=== PATIENT | female | born 1980 | race Caucasian/White ===

== ENCOUNTER 2023-08-05 00:26 | Day surgery (SDC) | payer BC, SELFPAY ==
[2023-07-29 14:10] VITALS: BMI 31.6
--- NOTE | 2023-07-29 14:37 | PC.NURSE ---
Report to the Outpatient Waiting Room, entrance under the green pavilion located off [facility], at time _0600__ on date _08/05/23___. Planned Procedure Time: __0730__. Time changes happen often and if your time is changed the preop area will call you the afternoon before. - You and your visitor will be asked to self-screen and do not enter if you have any COVID symptoms. - A mask is optional within the hospital at this time. Patients may have clear liquids (water, carbonated beverages, clear teas, apple juice) until 3 hours prior to surgery with a maximum of 20 ounces. - No food from midnight until time of surgery. Take the following medications with a SIP of water the morning of surgery: __BREO ELLIPTA NEEDED DO NOT STOP ANY OF YOUR OTHER PRESCRIPTION MEDICATIONS PRIOR TO SURGERY ?EXCEPT THE FOLLOWING Medications to discontinue per physician PROBIOTIC Date to take last dose_08/02/23 Please no make-up, nail malay, hairspray, perfume, deodorant, or body powder the day of surgery. No jewelry (including any body piercings) or valuables the day of surgery, leave them at home. Please take a shower or bath the night before, or the morning of, surgery with an antibacterial soap. Wear comfortable, loose fitting clothing. - Jewelry must be removed prior to entering the operating room. Rings and piercings that are not removed may be cut off. - The hospital will not accept responsibility for valuables. - Please leave all valuables, including medications, at home the day of surgery. If you are going home after surgery, a licensed special education bus driver must drive you home. - NO public transportation without another adult if you receive anesthesia. - We recommend that an adult stay with you for 24 hours following discharge. - We also recommend that you do not drive, make important decision, drink alcoholic beverages, or take any drugs that were not prescribed by your health care provider for at least 24 hours after your discharge time. Follow any additional instructions given to you from your surgeon. If you or anyone in your household have experienced Covid symptoms in the past week, please notify your surgeon or the nurse liaison at the phone number below for possible testing. Telephone instructions given to __RYAN___and asked if any additional questions and then verbalized understanding. Patient advised to call surgeon office or pre surgery nurse liaison [phone] if any additional questions.
[2023-08-05] VITALS (8 sets, daily range): BP systolic 100–144; BP diastolic 63–91; PULSE 49–105; RESP 12–24; TEMP 36.3; O2SAT 99–100
[2023-08-05] MEDS: KETOROLAC 15 MG/ML VIAL (*BKC) IV PUSH (06:47)
[2023-08-05] MEDS: ACETAMINOPHEN 500 MG TABLET 1000 MG PO (06:48)
[2023-08-05] MEDS: LACTATED RINGERS 1,000 ML 30 ML IV CONT ×2 (06:50→08:29)
--- NOTE | 2023-08-05 07:24 | WPDHPUPDATE1 ---
History and Physical Update Update Date/Time: 08/05/23 07:24 History and Physical has been reviewed, including an updated exam of the patient. There are NO changes in the patient's condition. Risks, benefits, and alternatives have been discussed and questions answered. Patient agrees to proceed with procedure.
--- NOTE | 2023-08-05 07:24 | PM.HPGS ---
History of Present Illness History of Present Illness Consent: Risks, benefits, and alternatives have been discussed and questions answered. Patient agrees to proceed with procedure. Chief complaint: Elec Sterilization Narrative: Tatum Vera is a 43 year old female 1 para 1 admitted for outpatient laparoscopic bilateral salpingectomy for sterilization. The patient has completed her childbearing and requests permanent control. All methods of control were reviewed and she declines medical management and wishes to proceed with surgery. Risks of surgery including infection, bleeding, injury to internal organs, and tubal failure with increased risk of ectopic are reviewed. The patient is aware the procedure was performed under general anesthesia. The patient voices understanding and agrees to proceed. Review of Systems Review of Systems: not repeated day of surgery; patient states no changes in status PMFSH Past Medical History Medical History (Updated 08/05/23 @ 07:26 by Wanda Sherwood MD) (normal spontaneous vaginal delivery) Surgical History Surgical History (Updated 08/05/23 @ 07:25 by Wanda Sherwood MD) History of breast biopsy 2015 benign cyst Social History Social History Smoking packs per day: 1 Smoking cigarettes per day: 20.0 Years smoked: 17 Smoking pack-years: 17.00 Smoking status: Former smoker Tobacco type: cigarettes Smoking end date: 07/22/12 Substance use: never Substance use type: does not use Living arrangements: with family Spiritual care concerns: No Meds Home Medications and Allergies Home Medications Medication Instructions Recorded Confirmed Type L.acidop,casei,lactis,rham-B.lact,maura 1 cap PO DAILY 07/29/23 08/05/23 History 625 mg (10 billion cell) capsule (Advanced Probiotic) fexofenadine 180 mg tablet 180 mg PO DAILY 07/29/23 08/05/23 History fluticasone furoate 100 2 inh inhalation DAILY 07/29/23 08/05/23 History mcg-vilanterol 25 mcg/dose inhalation powder (Breo Ellipta) Allergies Allergy/AdvReac Type Severity Reaction Status Date / Time fluconazole Allergy Severe Hives Unverified 08/05/23 06:42 Vital Signs Vital Signs - 24 hr 08/05/23 06:36 Temperature 97.4 F L Pulse Rate 64 Respiratory Rate 16 Blood Pressure 132/77 Pulse Oximetry 99 Oxygen Delivery Room Air Exam Const: General: healthy appearing and alert Orientation/consciousness: patient oriented x3 Resp: Effort & Inspection: normal respiratory effort GI: GI Palp: Yes Soft to palpation, No Tenderness to palpation present (GI) and No Palpable mass present : External Female Exam: normal external appearance Speculum Exam - Vagina: normal appearance of the vagina and normal vaginal discharge Speculum Exam - Cervix: normal appearance of the cervix Bimanual exam- vagina & uterus: uterine size normal and consistency normal Bimanual Exam- Adnexa, other: normal adnexae and No adnexal tenderness Neuro: General: patient oriented x3 Assessment and Plan Assessment and plan (1) Encounter for sterilization: Code(s): Z30.2 - Encounter for sterilization Status: Acute Assessment and Plan: plan to proceed with laparoscopic bilateral salpingectomy
--- NOTE | 2023-08-05 08:14 | P.OP_ITS ---
Procedure Note - Detailed Date of Procedure 08/05/23 Pre-op Diagnosis Elec Sterilization Post-op Diagnosis Same Procedure Performed Laparoscopic bilateral salpingectomy Surgeon Wanda Sherwood MD Anesthesia General Findings the uterus, ovaries, left tube appear grossly normal the right tube has multiple fallopian cysts Description of Procedure The patient is taken placed under anesthesia in the dorsal lithotomy position. She was prepped and draped in the usual sterile fashion. The bladder was drained with a red rubber catheter. Ludowici speculum was placed in the vagina and the cervix grasped on the anterior lip with a tenaculum. The acNeuString man ipulator was placed. The attention was then turned to the abdomen where a vertical skin incision was made at the base of the umbilicus. The abdomen is tented and the Veress needle placed. Opening patient pressure was 3mmHg. Pneumoperitoneum was obtained using CO2 to a patient pressure of 15mmHg. The Veress needle was then removed. The 5mm Optiview trocar was then placed and intra-abdominal placement confirmed with the laparoscope. The patient is placed in Trendelenburg and a skin incision was made to the left and right of midline at the symphysis pubis. The 5mm trocars were placed under direct visualization. The blunt probe was used to bring the tubes into the visual field. The left tube was grasped at its fimbriated in and using the LigaSure the mesosalpinx is cauterized and cut until the cornu was reached. The tube was then crossclamped and removed through the trocar. Good hemostasis is noted. The right tube has multiple tubal cysts. The right tube was grasped at its fimbriated end and the mesosalpinx cauterized and cut. The tube was crossclamped and the cyst required cauterization with the pinpoint cautery on the LigaSure to collapse them. The tube then fit through the lower port and was removed. The pneumoperitoneum was reduced and the trocars removed. The umbilical trocar had bleeding vessels in the subcutaneous skin that required cauterization for hemostasis. The skin incisions are closed using 4-0 nylon in an interrupted fashion. Vaginal instruments are removed. Sponge, needle, and instrument counts are correct per the OR staff. Patient is awakened from anesthesia and taken to recovery in stable condition. Estimated Blood Loss 25 Drains No Pathology Yes ( Bilateral tubes) Complications No immediate complications Condition Stable Disposition PACU
[2023-08-05] MEDS: oxyCODONE HCL (*CRX) 5 MG TAB IR PO (09:33)
== END 2023-08-05 10:10 | disposition home or self-care (01) ==
PROVIDERS: PCP Internal Medicine; Visit Provider Obstetrics & Gynecology Gynecology
PROC: (CPT 49320; principal; 2023-08-05 07:30)
DX: Z30.2 Encounter for sterilization (principal); Z79.51 Long term (current) use of inhaled steroids; Z87.891 Personal history of nicotine dependence
CPT/HCPCS: 58661; 88302; A9270; J0330; J1100; J1885; J2250; J2405; J2704; J3010; J7120

== ENCOUNTER 2024-12-22 10:03 | Outpatient (CLI) | payer BC, SELFPAY ==
--- NOTE | ~2024-12-22 | MM_ITS ---
PROCEDURE: MM SCREENING RACHAEL BI W DOMINIK INDICATION: Asymptomatic, referred for screening mammogram COMPARISON: 11/17/2012 TECHNIQUE: Digital breast tomosynthesis craniocaudal and mediolateral oblique views of Both breasts w ere obtained with computer-aided detection to assist in interpretation of the study. FINDINGS: There are scattered areas of fibroglandular density. No focal dominant mass, architectural distortion, or suspicious microcalcifications are identified. There are no features to suggest malignancy. IMPRESSION: No evidence of malignancy in the breast. Recommend continued screening mammography BI-RADS 1, NEGATIVE Reviewed, dictated and finalized at location B.
--- OUTSIDE RECORDS SUMMARY | 2024-12-22 10:24 | XMS_ITS | Clinical Summary ---
Author Organization [facility] Address [address] 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 This disclosure is being madepursuant to the Care Everywhere program and may not contain all information available regarding this patient. Last updated 18.[facility] [place] Social History Tobacco Use Types Packs/Day Years Used Date Smoking Tobacco: Never Assessed Comments Unknown Sex and Gender Information Value Date Recorded Sex Assigned at Not on file Legal Sex Female 7:35 AM DIRECTOR SHIP Gender Identity Not on file Sexual Orientation Not on file Plan of Treatment Health Maintenance Due Date Last Done Comments LIPID TESTING 1981 MAMMOGRAM 1981 PAP SMEAR 1981 HIV SCREENING 1996 HEPATITIS C SCREENING 04/25/1999 DTAP/TDAP/TD VACCINES (1 - Tdap) 2000 HEPATITIS B VACCINE (1 of 3 - 19+ 3-dose series) 2000 COVID-19 VACCINE (1 - 2023-2 5 season) 2024 DEPRESSION SCREENING 07/22/2024 INFLUENZA VACCINE (Season Ended) 2025 ZOSTER VACCINE (1 of 2) 2031 HIB VACCINE Aged Out No longer eligi ble based on patient's age to complete this topic HPV VACCINE Aged Out No longer eligi ble based on patient's age to complete this topic MENINGOCOCCAL (Group B) VACC INE SHARED DECISION-MAKING Aged Out No longer eligibl e based on patient's age to complete this topic MENINGOCOCCAL GROUPS A/C/Y/W VACCINE Aged Out No longer eligible b ased on patient's age to complete this topic PNEUMOCOCCAL VACCINE Aged Out No long er eligible based on patient's age to complete this topic Insurance [facility] SELF PAY NO INSURANCE Member Subscriber Plan / Payer (Ef fective for All Dates) Name:Ryan Vera Member ID:Not on file Relation to Subscriber:Not on file Name:RYAN VERA Subscriber ID:Not on file Address: [address] [place] [address] Payer ID:Not on file Group ID:Not on file Type:Self Pay Address: [facility]
== END 2024-12-22 10:04 | disposition home or self-care (01) ==
PROVIDERS: PCP Internal Medicine; Visit Provider Obstetrics & Gynecology Gynecology
DX: Z12.31 Encounter for screening mammogram for malignant neoplasm of breast (principal)
CPT/HCPCS: 77063; 77067